=== PATIENT | female | born 1995 | race Caucasian/White ===

== ENCOUNTER 2022-10-06 20:14 | Emergency (ER) | payer OTHER ==
[~2022-10-06] VITALS: Ht 154.9 cm; Wt 58.1 kg
[2022-10-06 20:20] VITALS: BP 113/84
--- NOTE | 2022-10-06 20:26 | NUR ---
TO BR FOR UA
--- NOTE | 2022-10-06 20:28 | NUR ---
PT TAKEN TO BED 12
[2022-10-06] MEDS ORDERED: MORPHINE SULFATE 4 MG/ML SYR IVP ONE (20:40)
[2022-10-06] MEDS ORDERED: ONDANSETRON 4 MG/2 ML VIAL IVP ONE (20:40)
[2022-10-06] MEDS ORDERED: NACL 0.9% 1,000 ML IV ONE (20:40)
[2022-10-06 20:45] LABS: APPEARANCE,URINE CLEAR (CLEAR); BILIRUBIN,URINE NEGATIVE (NEGATIVE); BLOOD, URINE 1+ (NEGATIVE); COLOR,URINE YELLOW (YELLOW); LEUKOCYTE ESTERASE ,URINE NEGATIVE (NEGATIVE); NITRITE, URINE NEGATIVE (NEGATIVE); PH,URINE 7.5 (5.0-9.0); UGLUCOSE NEGATIVE (NEGATIVE)
[2022-10-06 20:46] LABS: BASOPHILS # (AUTO) 0.1 K/uL (0.00-0.22); BASOPHILS % (AUTO) 0.7 % (0.0-2.0); EOSINOPHILS # (AUTO) 0.5 K/uL (0-0.4); EOSINOPHILS % (AUTO) 3.1 % (0.0-4.0); HEMATOCRIT 39.4 % (36-48); HEMOGLOBIN 13.3 g/dL (12.0-16.0); LYMPHOCYTES # (AUTO) 3.5 K/uL (2.5-16.5); LYMPHOCYTES % (AUTO) 23.6 % (20.5-51.1); MEAN CORPUSCULAR HEMOGLOBIN 30 pg (27-31); MEAN CORPUSCULAR HGB CONC 34 g/dL (33-37); MEAN CORPUSCULAR VOLUME 88.6 fL (80-94); MONOCYTES # (AUTO) 0.8 K/uL (0.8-1.0); MONOCYTES % (AUTO) 5.5 % (1.7-9.3); NEUTROPHILS # (AUTO) 9.9 K/uL (1.8-7.7); NEUTROPHILS % (AUTO) 67.1 % (42.2-75.2); PLATELET COUNT (AUTO) 344 K/uL (140-450); RED BLOOD CELL COUNT(AUTO) 4.44 MIL/uL (4.20-5.40); RED CELL DISTRIBUTION WIDTH 13.8 % (11.6-13.7); WHITE BLOOD COUNT (AUTO) 14.7 K/uL (4.8-10.8)
[2022-10-06 20:57] LABS: ALBUMIN 3.7 g/dL (3.4-5.0); ANION GAP 11.7 (8-16); CARBON DIOXIDE 28.3 mmol/L (21-32); CREATININE 0.7 mg/dL (0.6-1.3); TOTAL BILIRUBIN 0.2 mg/dL (0.0-1.0)
[2022-10-06 20:58] LABS: OTHER CASTS, URINE None Seen /LPF (None Seen); WBC,URINE 0-5 /HPF (0-5)
--- NOTE | 2022-10-06 21:01 | NUR ---
Ultrasound at bedside.
--- NOTE | 2022-10-06 21:08 | NUR ---
PATIENT MEDICATED PER ORDERS. TOLERATED WELL
--- NOTE | 2022-10-06 22:16 | NUR ---
ADIN FLORENTINO AT BEDSIDE
[2022-10-06] MEDS ORDERED: ONDA-188 SL (22:42)
[2022-10-06] MEDS ORDERED: IBUP-2213 PO (22:42)
--- NOTE | 2022-10-06 22:47 | NUR ---
ADIN HU AT BEDSIDE
--- NOTE | 2022-10-06 22:49 | NUR ---
IV removed, catheter intact and site benign. Applied folded 4x4 gauze and tape to stop bleeding.
[2022-10-06 22:50] VITALS: BP 128/85
--- NOTE | 2022-10-06 22:50 | NUR ---
Patient discharged with v/s stable. Written and verbal after care instructions given and explained. Patient alert, oriented and verbalized understanding of instructions. Ambulatory with steady gait. All questions addressed prior to discharge. ID band removed. Patient advised to follow up with PMD. Rx of Ibuprofen, Zofran ODT given. Patient educated on indication of medication including possible reaction and side effects. Opportunity to ask questions provided and answered.
== END 2022-10-06 22:50 | disposition home or self-care (01) ==
LOC: MED 20:14
DX: R10.32 Left lower quadrant pain (principal)
CPT/HCPCS: 36415; 74176; 76856; 80053; 81001; 81025; 83690; 85025; 93976; 96361; 96374; 96375; 99285; J2270; J2405; J7030

== ENCOUNTER 2024-04-19 11:38 | Emergency (ER) | payer OTHER ==
[~2024-04-19] VITALS: Ht 154.9 cm; Wt 62.6 kg
[~2024-04-19 11:38] MED LIST: IBUP-2213 PO; ONDA-188 SL
[2024-04-19 11:49] VITALS: BP 157/91; PULSE 78; RESP 18; TEMP 97.7; O2SAT 98
[2024-04-19] MEDS: ACETAMINOPHEN EXTRA STRENGTH 500 MG TAB PO ONE (12:49)
[2024-04-19] MEDS ORDERED: METH-1681 PO (13:52)
[2024-04-19] MEDS ORDERED: METH1ADH21 TP (13:52)
[2024-04-19] MEDS ORDERED: NAPR-1704 PO (13:52)
[2024-04-19] MEDS: methocarbamoL 500 MG TAB PO ONE (13:53)
[2024-04-19] MEDS: LIDOCAINE 5% 1 EA PATCH TP ONE (14:04)
[2024-04-19 14:08] VITALS: BP 135/73; PULSE 70; RESP 18; TEMP 97.7; O2SAT 99
== END 2024-04-19 14:08 | disposition home or self-care (01) ==
LOC: MED 11:38
DX: S39.012A Strain of muscle, fascia and tendon of lower back, initial encounter (principal); Z90.49 Acquired absence of other specified parts of digestive tract; Z98.890 Other specified postprocedural states; Z79.899 Other long term (current) drug therapy; W01.0XXA Fall on same level from slipping, tripping and stumbling without subsequent striking against object, initial encounter; Y92.828 Other wilderness area as the place of occurrence of the external cause; Y93.01 Activity, walking, marching and hiking; Y99.8 Other external cause status
CPT/HCPCS: 72100; 81002; 81025; 99284